=== PATIENT | female | born 1990 | race Caucasian/White ===

== ENCOUNTER → 2017-10-30 | Outpatient (CLI) | payer MEDICAID ==
--- NOTE | 2017-10-30 16:01 | RADIOLOGY REPORT (SQ) ---
EXAM DESCRIPTION: U/S NON-OB PELVIS TV W/O DOP COMPLETED DATE/TIME: 10/30/2017 2:46 pm REASON FOR STUDY: PELVIC PAIN IN FEMALE (R10.2) R10.2 PELVIC AND PERINEAL PAIN COMPARISON: None. TECHNIQUE: Dynamic and static grayscale images acquired of the pelvis via transvaginal approach and recorded on PACS. Additional selected color Doppler and spectral images recorded. LIMITATIONS: Left ovary not visualized due to adnexal bowel gas FINDINGS: UTERUS: Contour normal. No mass. Uterus measures 8 x 5 x 4 cm in size. ENDOMETRIAL STRIPE: 5 mm in thickness. Small amount of fluid in the fundal endometrium. CERVIX: No nabothian cysts. Closed, 3.5 cm in length. RIGHT OVARY: No abnormal masses. Right ovary 2.3 x 2.7 x 2 cm in size RIGHT OVARY DOPPLER: Normal arterial vascular flow without evidence for torsion. LEFT OVARY: Not visualized LEFT OVARY DOPPLER: Not performed FREE FLUID: None noted. OTHER: No other significant finding. IMPRESSION: LEFT OVARY NOT VISUALIZED. OTHERWISE UNREMARKABLE TRANSVAGINAL PELVIC ULTRASOUND. TECHNICAL DOCUMENTATION: JOB ID: [id number] [employer]- All Rights Reserved
== END ==
LOC: RAD 14:03
PROVIDERS: ATTEND Nurse Practitioner Family
DX: R10.2 Pelvic and perineal pain (principal)
CPT/HCPCS: 76830

== ENCOUNTER 2018-09-20 04:04 | Emergency (ER) | payer MEDICAID ==
--- NOTE | 2018-09-20 05:18 | ER Document Report ---
ED General - General Chief Complaint: Urinary Problem Stated Complaint: ABDOMINAL PAIN,LOWER BACK PAIN Time Seen by Provider: 09/20/18 04:35 Notes: 27-year-old female with no past medical history who presents to the emergency department with abdominal pain and lower back pain that is worse on the right side and radiates around to her right lower quadrant to the suprapubic area. She was seen at [facility] last night and was diagnosed with a UTI was given 1 dose of oral antibiotics and discharged with a prescription. She has not gotten it filled yet and only has 1 dose on board. Her discharge instructions were if the pain got worse or she had any concerns to return to the emergency department and [facility] was the closest one for her so she came here. She endorses right flank paiN, right lower quadrant pain, urinary frequency, and states that she vomited 2 times yesterday. She denies fevers, chills, diaphoresis, dysuria, abnormal vaginal discharge, any other symptoms. LMP 09/12/2018. Patient is and in a monogamous relationship. TRAVEL OUTSIDE OF THE [place] IN LAST 30 DAYS: No - HPI Patient complains to provider of: UTI, back pain - Related Data Allergies/Adverse Reactions: No Known Allergies Allergy (Verified 08/05/15 12:31) Past Medical History - General Information source: Patient - Social History Smoking Status: Never Smoker Family History: Reviewed & Not Pertinent Patient has suicidal ideation: No Patient has homicidal ideation: No Pulmonary Medical History: Reports: Hx Asthma - NOT ON MEDS IN YEARS Neurological Medical History: Denies: Hx Seizures Endocrine Medical History: Denies: Hx Hyperthyroidism, Hx Hypothyroidism Renal/ Medical History: Denies: Hx Peritoneal Dialysis Psychiatric Medical History: Reports: Hx Anxiety Infectious Medical History: Denies: Hx HIV Past Surgical History: Reports: Hx Adenoidectomy, Hx Section - x3, Hx Tonsillectomy. Denies: Hx Hysterectomy, Hx Pacemaker - Immunizations Immunizations up to date: Yes Hx Diphtheria, Pertussis, Tetanus Vaccination: Yes Review of Systems - Review of Systems Constitutional: See HPI EENT: See HPI Cardiovascular: No symptoms reported Respiratory: See HPI Gastrointestinal: See HPI Genitourinary: See HPI Female Genitourinary: See HPI Musculoskeletal: See HPI Skin: No symptoms reported Hematologic/Lymphatic: No symptoms reported Neurological/Psychological: No symptoms reported Physical Exam - Vital signs Vitals: Temp Pulse Resp BP Pulse Ox 98.1 F 90 16 110/59 L 98 09/20/18 04:05 09/20/18 04:05 09/20/18 04:05 09/20/18 04:05 09/20/18 04:05 Interpretation: Normal - Notes Notes: Reviewed vital signs and nursing note as charted by RN. CONSTITUTIONAL: Well-appearing, well-nourished, acting appropriately for age HEAD: Normocephalic, atraumatic, no swelling EYES: PERRL, Conjunctivae clear, no drainage, EOMI, no scleral icterus ENT: External ears without lesions, External auditory canal is patent, airway patent, mucous membranes pink and moist NECK: Supple, no masses CARD: Regular rate and rhythm, no murmurs, no rubs, no gallops, capillary refill < 2 seconds, symmetric pulses RESP: The lungs are clear to auscultation bilaterally, no wheezing, no rales, no rhonchi. Respiratory rate and effort are normal, normal chest excursion. No respiratory distress, no retractions, no stridor, no nasal flaring, no accessory muscle use. ABD/GI: Normal bowel sounds, non-distended, soft, tenderness to palpation right lower quadrant and suprapubic area, no rebound, no guarding, no palpable organomegaly : CVA tenderness right side EXT: Normal ROM in all joints, non-tender to palpation, no effusions, no edema SKIN: Normal color for age and race, warm, dry, good turgor, no acute lesions noted NEURO: No facial asymmetry, moves all extremities equally, motor and sensory function intact Course - Re-evaluation Re-evalutation: 27-year-old female who presents to the emergency department after being seen at [facility] a few hours ago and diagnosed with a UTI. She recently received 1 dose of antibiotic there and prescribed Keflex. Discharge instructions stated that if her pain worsened or if she had a concern to return to the emergency department. [facility] the closest ER so she came here because her flank pain worsened and she could not sleep. Discussed with the patient that it could take 24-48 hours for antibiotics to start working, although she was diagnosed with a UTI it is concerning that she is having flank pain. Shared decision-making with the patient included 1: Discharge with very close follow-up over the next 24-48 hours to see if the antibiotic start working; or 2: Initiate a workup to include urinalysis/hCG, blood work, and a KUB. Patient opted for basic workup. 09/20/18 06:00 Patient possibly with an early developing pyelonephritis. Instructed her to immediately fill the prescription for Keflex that she received at [facility] last night and to start treatment. Strict return precautions provided. - Vital Signs Vital signs: Temp Pulse Resp BP Pulse Ox 98.1 F 90 16 110/59 L 98 09/20/18 04:05 09/20/18 04:05 09/20/18 04:05 09/20/18 04:05 09/20/18 04:05 - Laboratory Result Diagrams: 09/20/18 05:20 09/20/18 05:20 Laboratory results interpreted by me: 09/20/18 09/20/18 05:20 05:20 RDW 14.2 H Urine Blood SMALL H Ur Leukocyte Esterase TRACE H Discharge - Discharge Clinical Impression: Flank pain UTI (urinary tract infection) Qualifiers: Urinary tract infection type: acute cystitis Hematuria presence: without hematuria Qualified Code(s): N30.00 - Acute cystitis without hematuria Disposition: HOME, SELF-CARE Instructions: Urinary Tract Infection ([facility]) Additional Instructions: You were seen in the emergency department this morning for a urinary tract infection. Please fill the prescription you received from [facility] and complete the course of antibiotics. All of your lab work was normal and there is no sign of infection other than in your urine. You should start feeling better in the next 24-48 hours after you get antibiotics in your system. You were also prescribed a muscle relaxer that you can take before you go to bed at night to help you sleep and it will hopefully improve your back pain. It is not advisable to take this medication and drive or work. If over the next couple of days you develop a high fever, have severe flank or abdominal pain, pass out, or the course of your illness gets worse please return to the emergency department. Prescriptions: Methocarbamol [Robaxin] 500 mg PO BID PRN #14 tablet PRN Reason: Forms: Return to Work Referrals: SHANDRA ARRIAZA HORSE STUD MANAGER [Primary Care Provider] - Follow up as needed
[2018-09-20] MEDS ORDERED: OXYCODONE-ACETAMINOPHEN 5-325 MG TABLET PO ONE (05:29)
[2018-09-20 05:35] LABS: ABSOLUTE EOSINOPHILS # (AUTO) 0.2 10^3/uL (0.0-0.6); ABSOLUTE LYMPHOCYTES (AUTO) 3.1 10^3/uL (0.5-4.7); ABSOLUTE MONOCYTES (AUTO) 0.4 10^3/uL (0.1-1.4); ABSOLUTE NEUT (AUTO) 3.4 10^3/uL (1.7-8.2); BASOPHILS % (AUTO) 0.6 % (0-2); EOSINOPHILS % (AUTO) 3.3 % (0-6); HEMATOCRIT 41.7 % (36.0-47.0); HEMOGLOBIN 14.1 g/dL (12.0-15.5); LYMPHOCYTES % (AUTO) 42.9 % (13-45); MEAN CORPUSCULAR HEMOGLOBIN 31.1 pg (27.0-33.4); MEAN CORPUSCULAR HGB CONC 33.8 g/dL (32.0-36.0); MEAN CORPUSCULAR VOLUME 92 fl (80-97); MONOCYTES % (AUTO) 5.9 % (3-13); PLATELET COUNT 255 10^3/uL (150-450); RED BLOOD COUNT 4.53 10^6/uL (3.72-5.28); RED CELL DISTRIBUTION WIDTH 14.2 % (11.5-14.0); SEGMENTED NEUTROPHILS % (AUTO) 47.3 % (42-78); TOTAL CELLS COUNTED % (AUTO) 100 %; WHITE BLOOD COUNT 7.2 10^3/uL (4.0-10.5)
[2018-09-20 05:56] LABS: ALANINE AMINOTRANSFERASE 15 U/L (9-52); ALBUMIN 4.6 g/dL (3.5-5.0); ALKALINE PHOSPHATASE 62 U/L (38-126); ANION GAP 8 (5-19); ASPARTATE AMINO TRANSFERASE 19 U/L (14-36); BILIRUBIN,DIRECT 0.3 mg/dL (0.0-0.4); BILIRUBIN,TOTAL 0.3 mg/dL (0.2-1.3); BLOOD UREA NITROGEN 12 mg/dL (7-20); CALCIUM 9.8 mg/dL (8.4-10.2); CARBON DIOXIDE 29 mmol/L (22-30); CHLORIDE 105 mmol/L (98-107); GLUCOSE 94 mg/dL (75-110); POTASSIUM 3.9 mmol/L (3.6-5.0); SODIUM 141.6 mmol/L (137-145); TOTAL PROTEIN 7.5 g/dL (6.3-8.2)
[2018-09-20 06:16] LABS: APPEARANCE,URINE CLEAR; BILIRUBIN,URINE NEGATIVE (NEGATIVE); COLOR,URINE YELLOW; GLUCOSE, URINE NEGATIVE (NEGATIVE); KETONES,URINE NEGATIVE (NEGATIVE); LEUKOCYTE ESTERASE,URINE TRACE (NEGATIVE); NITRITE,URINE NEGATIVE (NEGATIVE); PROTEIN,URINE NEGATIVE (NEGATIVE); URINE SPECIFIC GRAVITY 1.011; UROBILINOGEN,URINE NEGATIVE mg/dL (<2.0)
--- NOTE | 2018-09-20 06:36 | RADIOLOGY REPORT (SQ) ---
EXAM DESCRIPTION: XR ABDOMEN 1 VIEW (KUB) COMPLETED DATE/TME: 09/20/2018 05:06 CLINICAL HISTORY: 27 years, Female, R CVA tenderness COMPARISON: None. NUMBER OF VIEWS: 1 TECHNIQUE: AP abdomen LIMITATIONS: None. FINDINGS: Nonspecific bowel gas pattern. Evaluation for free air limited on a supine view. Large amount of stool in the colon. IMPRESSION: Large amount of stool in the colon copyright 2010 [employer]- All Rights Reserved
[2018-09-20 06:54] VITALS: BP 111/64
== END 2018-09-20 06:54 | disposition home or self-care (01) ==
LOC: ER 04:04
DX: N30.00 Acute cystitis without hematuria (principal); R10.9 Unspecified abdominal pain; M54.5 Low back pain; R39.198 Other difficulties with micturition; R10.31 Right lower quadrant pain; R35.0 Frequency of micturition; J45.909 Unspecified asthma, uncomplicated
CPT/HCPCS: 36415; 74018; 80053; 81001; 81025; 85025; 87086; 99284

== ENCOUNTER 2020-01-07 11:04 | Emergency (ER) | payer SELFPAY ==
[2020-01-07 11:26] LABS: ABSOLUTE BASOPHILS # (AUTO) 0.1 10^3/uL (0.0-0.2); ABSOLUTE EOSINOPHILS # (AUTO) 0.1 10^3/uL (0.0-0.6); ABSOLUTE LYMPHOCYTES (AUTO) 1.9 10^3/uL (0.5-4.7); ABSOLUTE MONOCYTES (AUTO) 0.4 10^3/uL (0.1-1.4); ABSOLUTE NEUT (AUTO) 3.5 10^3/uL (1.7-8.2); EOSINOPHILS % (AUTO) 1.2 % (0-6); HEMATOCRIT 37.4 % (36.0-47.0); HEMOGLOBIN 12.3 g/dL (12.0-15.5); LYMPHOCYTES % (AUTO) 32.1 % (13-45); MEAN CORPUSCULAR HGB CONC 32.8 g/dL (32.0-36.0); MEAN CORPUSCULAR VOLUME 82 fl (80-97); MONOCYTES % (AUTO) 6.4 % (3-13); PLATELET COUNT 288 10^3/uL (150-450); RED BLOOD COUNT 4.54 10^6/uL (3.72-5.28); RED CELL DISTRIBUTION WIDTH 18.2 % (11.5-14.0); SEGMENTED NEUTROPHILS % (AUTO) 59.3 % (42-78); TOTAL CELLS COUNTED % (AUTO) 100 %; WHITE BLOOD COUNT 5.9 10^3/uL (4.0-10.5)
[2020-01-07] MEDS ORDERED: METOCLOPRAMIDE HCL INJ/PF 10 MG/2 ML SDV IV ONE (11:27)
[2020-01-07] MEDS ORDERED: NORMAL SALINE 1000 ML 1,000 ML IV ONE (11:27)
[2020-01-07] MEDS ORDERED: DIPHENHYDRAMINE HCL 50 MG/ML VIAL IV ONE (11:28)
[2020-01-07] MEDS ORDERED: FENTANYL CITRATE INJ/PF 100 MCG/2 ML AMPUL IV ONE (11:28)
--- NOTE | 2020-01-07 11:39 | ER Document Report ---
Entered by KRISTY FRAGOSO SCRIBE 01/07/20 1115 Acting as scribe for:JONATHAN HILL DO ED General - General Chief Complaint: Probable Seizure Stated Complaint: POSSIBLE SEIZURE Time Seen by Provider: 01/07/20 11:10 Primary Care Provider: SHANDRA ARRIAZA NP [NURSE PRACTITIONER] - Follow up as needed Information source: Patient Notes: This 29-year-old right-handed female with a history of headaches presents to the emergency department complaining of a headache since this morning. Patient describes the location of the headache as biparietal and as throbbing. Patient explains that she went to [place] with her today and had an episode of nausea with vomiting just before they arrival to [place]. Patient said that when they got to [place], she felt "shaky" and "may have pass out" or "had a seizure". Patient said that when she has headaches she "has episodes like this" and has had headache since she was [age] years old. Patient reports right hip pain, clive tosensitivity, persistent nausea, and persistent vomiting. Patient denies fever, tick bites. biting her tongue or incontinence. TRAVEL OUTSIDE OF THE [place] IN LAST 30 DAYS: No - Related Data Allergies/Adverse Reactions: No Known Allergies Allergy (Verified 08/05/15 12:31) Past Medical History - General Information source: Patient - Social History Smoking Status: Never Smoker Cigarette use (# per day): No Chew tobacco use (# tins/day): No Family History: Reviewed & Not Pertinent Pulmonary Medical History: Reports: Hx Asthma - NOT ON MEDS IN YEARS Psychiatric Medical History: Reports: Hx Anxiety Past Surgical History: Reports: Hx Adenoidectomy, Hx Section - x3, Hx Tonsillectomy - Immunizations Immunizations up to date: Yes Hx Diphtheria, Pertussis, Tetanus Vaccination: Yes Review of Systems - Review of Systems Constitutional: See HPI. denies: Fever EENT: See HPI, Other - Photosensitivity Cardiovascular: No symptoms reported Respiratory: No symptoms reported Gastrointestinal: See HPI, Nausea, Vomiting Genitourinary: See HPI. denies: Incontinence Female Genitourinary: No symptoms reported Musculoskeletal: See HPI, Other - Right hip pain Skin: No symptoms reported Hematologic/Lymphatic: No symptoms reported Neurological/Psychological: See HPI, Headaches -: Yes All other systems reviewed and negative Physical Exam - Vital signs Vitals: Resp Pulse Ox 13 99 01/07/20 11:13 01/07/20 11:13 - Notes Notes: Physical Exam: General: Alert, appears well. HEENT: Normocephalic. Atraumatic. PERRL. Extraocular movements intact. Oropharynx clear. Parietal region tenderness to palpation bilaterally. Neck: Supple. Non-tender. Respiratory: No respiratory distress. Clear and equal breath sounds bilaterally. Cardiovascular: Regular rate and rhythm. Abdominal: Normal Inspection. Non-tender. No distension. Normal Bowel Sounds. Back: No gross abnormalities. Extremities: Moves all four extremities. Upper extremities: Normal inspection. Normal ROM. Lower extremities: Normal inspection. No edema. Normal ROM. Neurological: Normal cognition. AAOx4. Normal speech. Psychological: Normal affect. Normal Mood. Skin: Warm. Dry. Normal color. Course - Vital Signs Vital signs: Temp Pulse Resp BP Pulse Ox 98.6 F 17 102/70 99 01/07/20 13:30 01/07/20 13:27 01/07/20 13:27 01/07/20 13:27 - Laboratory Result Diagrams: 01/07/20 11:13 01/07/20 11:13 Laboratory results interpreted by me: 01/07/20 01/07/20 01/07/20 11:13 11:13 12:05 RDW 18.2 H Magnesium 2.4 H Total Protein 8.3 H Ur Leukocyte Esterase TRACE H - EKG Interpretation by Mi EKG shows normal: Sinus rhythm Rate: Tachycardia Rhythm: NSR - Sinus Tachy 107 BPM otherwise normal. No st elevation or depression my interpretation. Discharge - Discharge Clinical Impression: Headache Qualifiers: Headache type: unspecified Headache chronicity pattern: acute headache Intractability: not intractable Qualified Code(s): R51 - Headache Syncope Qualifiers: Encounter type: initial encounter Condition: Good Disposition: HOME, SELF-CARE Instructions: Headache ([facility]), Migraine Headache ([facility]), Tension Headache ([facility]), Syncopal Episode ([facility]) Additional Instructions: See your doctor in follow up. Rest. Take your medicine as directed. Please return here for any problems or concerns including but not limited to fever, inability to tolerate the medicine or passing out recurrently. Referrals: SHANDRA ARRIAZA BEE RAISER [NURSE PRACTITIONER] - Follow up as needed I personally performed the services described in the documentation, reviewed and edited the documentation which was dictated to the scribe in my presence, and it accurately records my words and actions.
[2020-01-07 11:47] LABS: ALKALINE PHOSPHATASE 54 U/L (38-126); ANION GAP 10 (5-19); ASPARTATE AMINO TRANSFERASE 20 U/L (14-36); BILIRUBIN,TOTAL 0.3 mg/dL (0.2-1.3); BLOOD UREA NITROGEN 16 mg/dL (7-20); CALCIUM 9.8 mg/dL (8.4-10.2); CARBON DIOXIDE 26 mmol/L (22-30); CHLORIDE 104 mmol/L (98-107); GLUCOSE 86 mg/dL (75-110); POTASSIUM 4.4 mmol/L (3.6-5.0); TOTAL PROTEIN 8.3 g/dL (6.3-8.2)
[2020-01-07 11:55] LABS: ALCOHOL < 10 mg/dL (NONE DETECTED)
--- NOTE | 2020-01-07 11:59 | RADIOLOGY REPORT (SQ) ---
EXAM DESCRIPTION: CT HEAD WITHOUT IMAGES COMPLETED DATE/TIME: 01/07/2020 11:48 am REASON FOR STUDY: headache COMPARISON: None. TECHNIQUE: Axial images acquired through the brain without intravenous contrast. Images reviewed wi th bone, brain and subdural windows. Additional sagittal and coronal reconstructions were generated. Images stored on PACS. All CT scanners at this facility use dose modulation, iterative reconstruction, and/or weight based d osing when appropriate to reduce radiation dose to as low as reasonably achievable (ALARA). [facility]: Dose Right [facility]: CareDose [facility]: Dose Right [facility]: Teradose 4D [facility]: Qloo RADIATION DOSE: CT Rad equipment meets quality standard of care and radiation dose reduction techniq ues were employed. CTDIvol: 53.2 mGy. DLP: 1070 mGy-cm. mGy. LIMITATIONS: None. FINDINGS: VENTRICLES: Normal size and contour. CEREBRUM: No masses. No hemorrhage. No midline shift. No evidence for acute infarction. Normal gra y/white matter differentiation. No areas of low density in the white matter. CEREBELLUM: No masses. No hemorrhage. No alteration of density. No evidence for acute infarction. EXTRAAXIAL SPACES: No fluid collections. No masses. ORBITS AND GLOBE: No intra- or extraconal masses. Normal contour of globe without masses. CALVARIUM: No fracture. PARANASAL SINUSES: No fluid or mucosal thickening. SOFT TISSUES: No mass or hematoma. OTHER: No other significant finding. IMPRESSION: NORMAL BRAIN CT WITHOUT CONTRAST. EVIDENCE OF ACUTE STROKE: NO. COMMENT: Quality ID # [id number]: Final reports with documentation of one or more dose reduction techniques (e.g., Automated exposure control, adjustment of the mA and/or kV according to patient size, use of iterative reconstruction technique) TECHNICAL DOCUMENTATION: JOB ID: [id number] 2010 [employer]- All Rights Reserved Reading location - IP/workstation name: [email or web address]
--- NOTE | 2020-01-07 12:24 | EKG REPORT ---
SEVERITY:- OTHERWISE NORMAL ECG - SINUS TACHYCARDIA : Confirmed by: Chao Quiroga MD 07-Jan-2020 12:23:08
[2020-01-07 12:34] LABS: URINE AMPHETAMINES SCREEN NEGATIVE; URINE BARBITURATES SCREEN NEGATIVE; URINE BENZODIAZEPINES SCREEN NEGATIVE; URINE COCAINE SCREEN NEGATIVE; URINE METHADONE SCREEN NEGATIVE; URINE PHENCYCLIDINE SCREEN NEGATIVE
[2020-01-07 12:43] LABS: URINE MARIJUANA (THC) SCREEN UNCONFIRMED POSITIVE
[2020-01-07 12:48] LABS: APPEARANCE,URINE CLEAR; BILIRUBIN,URINE NEGATIVE (NEGATIVE); COLOR,URINE YELLOW; GLUCOSE, URINE NEGATIVE (NEGATIVE); KETONES,URINE NEGATIVE (NEGATIVE); LEUKOCYTE ESTERASE,URINE TRACE (NEGATIVE); NITRITE,URINE NEGATIVE (NEGATIVE); PROTEIN,URINE NEGATIVE (NEGATIVE); URINE SPECIFIC GRAVITY 1.016; UROBILINOGEN,URINE NEGATIVE mg/dL (<2.0)
[2020-01-07 13:30] VITALS: BP 102/70
== END 2020-01-07 13:52 | disposition home or self-care (01) ==
LOC: ER 11:04
DX: R51 Headache (principal); R55 Syncope and collapse; R00.0 Tachycardia, unspecified; R11.2 Nausea with vomiting, unspecified; M25.551 Pain in right hip; H53.149 Visual discomfort, unspecified; J45.909 Unspecified asthma, uncomplicated
CPT/HCPCS: 93005; 99284; 96361; 96374; 96375; 36415; 80307 ×2; 83605; 83735; 84443; 84703; 85025; 80053; 81001; 70450; 93010; J1200; J3010; J2765; J7030

== ENCOUNTER 2020-10-13 10:19 | Emergency (ER) | payer MEDICAID ==
--- NOTE | 2020-10-13 11:20 | ER Document Report ---
Entered by LITA PERALTA SCRIBE 10/13/20 1055 Acting as scribe for:CARMEN LOPEZ MD ED ENT - General Chief Complaint: Sore Throat Stated Complaint: SORE THROAT Time Seen by Provider: 10/13/20 10:45 Primary Care Provider: NOEL CRYSTAL [Provider Group] - Follow up as needed LOCALMD,KAREN [Primary Care Provider] - Follow up as needed Mode of Arrival: Ambulatory Information source: Patient Notes: This 29-year-old female patient presents to the emergency department today with complaints of throat pain for the last x4-5 days. Patient now complains of blisters in her mouth and on the corner of her lips as well. Her last menstrual period was in April, she is 23 weeks . TRAVEL OUTSIDE OF THE [place] IN LAST 30 DAYS: No - Related Data Allergies/Adverse Reactions: No Known Allergies Allergy (Verified 10/13/20 10:46) Past Medical History - General Information source: Patient - Social History Smoking Status: Never Smoker Cigarette use (# per day): No Frequency of alcohol use: None Drug Abuse: None Lives with: Family Family History: Reviewed & Not Pertinent Pulmonary Medical History: Reports: Hx Asthma - NOT ON MEDS IN YEARS Psychiatric Medical History: Reports: Hx Anxiety Past Surgical History: Reports: Hx Adenoidectomy, Hx Section - x3, Hx Tonsillectomy - Immunizations Immunizations up to date: Yes Hx Diphtheria, Pertussis, Tetanus Vaccination: Yes Review of Systems - Review of Systems Constitutional: No symptoms reported EENT: See HPI, Throat pain, Mouth pain, Mouth swelling Cardiovascular: No symptoms reported Respiratory: No symptoms reported Gastrointestinal: No symptoms reported Genitourinary: No symptoms reported Female Genitourinary: See HPI, Musculoskeletal: No symptoms reported Skin: No symptoms reported Hematologic/Lymphatic: No symptoms reported Neurological/Psychological: No symptoms reported -: Yes All other systems reviewed and negative Physical Exam - Vital signs Vitals: Temp Pulse Resp BP Pulse Ox 99.3 F 105 H 19 95/52 L 100 10/13/20 10:40 10/13/20 10:40 10/13/20 10:40 10/13/20 10:40 10/13/20 10:40 - Notes Notes: Physical Exam: General: Alert, appears uncomfortable. HEENT: Normocephalic. Atraumatic. PERRL. Extraocular movements intact. Orop harynx clear. There is an ulcer under the tongue, right posterior throat, and corners of the mouth bilaterally. Right submandibular swelling and tenderness to palpation. Neck: Supple. Non-tender. Respiratory: No respiratory distress. Clear and equal breath sounds bilaterally. Cardiovascular: Regular rate and rhythm. Abdominal: Normal Inspection. Non-tender. No distension. Normal Bowel Sounds. Back: No gross abnormalities. Extremities: Moves all four extremities. Upper extremities: Normal inspection. Normal ROM. Lower extremities: Normal inspection. No edema. Normal ROM. Neurological: Normal cognition. AAOx4. Normal speech. Psychological: Normal affect. Normal Mood. Skin: Warm. Dry. Normal color. Course - Re-evaluation Re-evalutation: 10/13/20 13:03 The patient was evaluated during the global COVID-19 pandemic and that diagnosis was suspected/considered upon their initial presentation. Their evaluation, treatment and testing was consistent with current guidelines for patients who present with complaints or symptoms that may be related to COVID-19. - Vital Signs Vital signs: Temp Pulse Resp BP Pulse Ox 98.4 F 96 16 106/64 100 10/13/20 12:40 10/13/20 12:40 10/13/20 12:40 10/13/20 12:40 10/13/20 12:40 - Laboratory Results Critical Laboratory Results Reviewed: No Critical Results - Radiology Results Critical Radiology Results Reviewed: No Critical Results Discharge - Discharge Clinical Impression: Coxsackievirus infection Condition: Stable Disposition: HOME, SELF-CARE Additional Instructions: Coxsackie Virus The coxsackie virus most often infects children. It grows in the intestines. Most patients have no symptoms at all. Some have fever and muscle aches, and may develop sore throat, nausea, and stomach aches. The fever of coxsackie virus is unusual, because it often comes on for one day, goes away for two days, then comes back for two to four days. In some patients, the coxsackie virus causes other symptoms. Newborns have an increased risk of severe infection. Fortunately, dangerous complications are very rare. 1. Herpangina -- painful ulcers on the throat, uvula, and palate. This usually lasts about a week. 2. Hand, Foot, and Mouth Disease -- tiny blisters in the mouth and throat, plus blisters on the palms and soles of the feet. 3. Pleurodynia -- pain in the chest and upper abdomen. This usually is gone in a couple of days. 4. Orchitis -- pain of the testicle, usually about two weeks after an attack of pleurodynia. 5. Conjunctivitis -- viral infection in the eye, often with small hemorrhages over the globe of the eye. Usually lasts about a week. 6. Rash -- usually bright red bumps about 1/8 inch in size, develops as the fever goes away. 7. Meningitis or encephalitis -- infection in the spinal fluid or brain (rare). 8. Myocarditis -- infection in the heart muscle (rare). There is no cure for coxsackie virus. Give acetaminophen for fever and aches. Have the child rest. If there are mouth sores, you'll need to pay attention to whether your child is getting enough fluids. The coxsackie virus is very contagious. Children should stay out of school for five days. Use good handwashing. Shared toys should be cleaned with disinfectant. Clean the toilets, sinks, and counter surfaces in bathrooms. Launder clothing in hot water. Call the doctor or return if there is lethargy, increasing headache, a seizure, neck stiffness, chest pain, severe abdominal pain, vomiting, shortness of breath, testicle pain, or if fever persists for more than a few days. use the Magic mouthwash to help relieve discomfort in your mouth. Do not eat or drink for 30 minutes after swishing and gargling the mouthwash. Take the pain medication as prescribed if needed. Be sure you drink plenty of fluids throughout the day in the evening. [facility] for recheck. RETURN TO THE EMERGENCY ROOM IF ANY NEW OR WORSENING SYMPTOMS. Prescriptions: Nystatin/Dexameth/Diphen [Magic Mouthwash ([facility] Formula) Susp] 5 ml PO ASDIR PRN #120 ml PRN Reason: Hydrocodone/Acetaminophen [[place] 5-325 mg Tablet] 1 tab PO ASDIR PRN #15 tablet PRN Reason: For Pain Referrals: LOCALMD,NO [Primary Care Provider] - Follow up as needed [facility] [Provider Group] - Follow up as needed I personally performed the services described in the documentation, reviewed and edited the documentation which was dictated to the scribe in my presence, and it accurately records my words and actions.
[2020-10-13 13:01] VITALS: BP 106/64
== END 2020-10-13 12:40 | disposition home or self-care (01) ==
LOC: ER 10:19
DX: O26.92 Pregnancy related conditions, unspecified, second trimester (principal); B34.1 Enterovirus infection, unspecified; J02.9 Acute pharyngitis, unspecified; Z3A.23 23 weeks gestation of pregnancy
CPT/HCPCS: 99284

== ENCOUNTER 2020-10-16 12:43 | Emergency (ER) | payer MEDICAID ==
[2020-10-16 12:53] VITALS: BP 105/68
--- NOTE | 2020-10-16 13:07 | ER Document Report ---
HPI - HPI Patient complains to provider of: Mouth sores Time Seen by Provider: 10/16/20 12:51 Pain Level: 3 Context: 29-year-old female 5 para 4, 23 weeks presents to the emergency room complaining of worsening mouth sores and swollen glands. Patient states started with swollen glands 10 days ago. 3 days later started with blisters on the edges of her lips and mouth. States was seen here 3 days ago was with diagnosed with coxsackievirus was described Vicodin and Magic mouthwash which she states she is currently out of both but both medications did help. She has had no coxsackie virus exposure. Blisters are limited to her mouth and lips. No history of oral herpes. States her glands are still swollen but she is able to tolerate p.o. food and fluid without difficulty. OB care up-to-date. No OB related complaints. Has not taken any medications today for her pain. Associated Symptoms: None Exacerbated by: Other - Swallowing Relieved by: Denies Similar symptoms previously: No Recently seen / treated by doctor: Yes - seen in ed 10/13/2019 - ROS Systems Reviewed and Negative: Yes All other systems reviewed and negative - CONSTITUTIONAL Constitutional: DENIES: Fever - EENT EENT: REPORTS: Sore Throat. DENIES: Ear Pain, Eye problems - REPRODUCTIVE Reproductive: REPORTS: : - DERM Skin Color: Erythema Skin Problems: Blister Past Medical History - General Information source: Patient - Social History Smoking Status: Former Smoker Frequency of alcohol use: None Drug Abuse: None Family History: Reviewed & Not Pertinent Pulmonary Medical History: Reports: Hx Asthma Neurological Medical History: Reports: Hx Migraine. Denies: Hx Seizures Endocrine Medical History: Denies: Hx Hyperthyroidism, Hx Hypothyroidism Renal/ Medical History: Denies: Hx Peritoneal Dialysis Psychiatric Medical History: Reports: Hx Anxiety Infectious Medical History: Denies: Hx HIV Past Surgical History: Reports: Hx Adenoidectomy, Hx Section, Hx Tonsillectomy. Denies: Hx Hysterectomy, Hx Pacemaker - Immunizations Immunizations up to date: Yes Hx Diphtheria, Pertussis, Tetanus Vaccination: Yes Vertical Provider Document - CONSTITUTIONAL Agree With Documented VS: Yes Exam Limitations: No Limitations General Appearance: Mild Distress - INFECTION CONTROL TRAVEL OUTSIDE OF THE [place] IN LAST 30 DAYS: No - HEENT HEENT: Normocephalic. negative: Pharyngeal Tenderness, Pharyngeal Erythema, Tympanic Membrane Red, Tympanic Membrane Bulging Notes: Cold sores noted to the bilateral outer areas of the lips. There are a few scattered lesions to the posterior pharynx. There is no erythema, there is no exudate. No obvious peritonsillar abscess. Handling her secretions, talking in full sentences. - NECK Neck: Lymphadenopathy-Left, Lymphadenopathy-Right Notes: Positive bilateral anterior cervical lymphadenopathy. - RESPIRATORY Respiratory: Breath Sounds Normal, No Respiratory Distress - CARDIOVASCULAR Cardiovascular: No Murmur, Tachycardia - BACK Back: Normal Inspection - MUSCULOSKELETAL/EXTREMETIES Musculoskeletal/Extremeties: FROM - NEURO Level of Consciousness: Awake, Alert, Appropriate Motor/Sensory: No Motor Deficit, No Sensory Deficit - DERM Integumentary: Warm, Dry, No Rash Course - Re-evaluation Re-evalutation: 10/16/20 12:59 Reviewed diagnosis with patient. Counseled take Valtrex as prescribed. Continue with Magic mouthwash. Can take Tylenol as needed for pain not to exceed 8 regular strength Tylenol in 24 hours. Follow-up with her FISH PITCHER or primary care physician if not improving in 2 days. Tylenol as needed for pain. Patient was given strict return to the emergency room guidelines. Return for any new or worsening symptoms. All questions were answered. Patient verbalized understanding and agrees with plan of care. 10/16/20 13:18 - Vital Signs Vital signs: Temp Pulse Resp BP Pulse Ox 98.2 F 110 H 20 105/68 100 10/16/20 12:48 10/16/20 12:48 10/16/20 12:48 10/16/20 12:48 10/16/20 12:48 - Laboratory Results Critical Laboratory Results Reviewed: No Critical Results - Radiology Results Critical Radiology Results Reviewed: No Critical Results Discharge - Discharge Clinical Impression: Gingivostomatitis, Oral herpes simplex infection Condition: Stable Disposition: HOME, SELF-CARE Instructions: Herpes Simplex ([facility]) Additional Instructions: Take the Valtrex as prescribed. Continue use of Magic mouthwash. Follow-up with your FISH PITCHER or primary care physician if not improving in 2 to 3 days. Return to the emergency room for any new or worsening symptoms. Prescriptions: Nystatin/Dexameth/Diphen [Magic Mouthwash ([facility] Formula) Susp] 5 ml PO QID #120 ml Valacyclovir HCl [Valtrex 500 Mg Tablet] 1,000 mg PO Q12H 7 Days #28 tablet Referrals: LOCALMD,NO [Primary Care Provider] - Follow up as needed
--- OUTSIDE RECORDS SUMMARY | 2020-10-18 10:42 | XMS REPORT ---
:1990 Author Organization [facility] Address [facility] [place] [address] [place] [id number] Care Team Providers Name Role Phone UNASSIGN, DOCTOR Primary Care Physician Unavailable Yasmeen WHITE Attending Clinician Unavailable EMERGENCY Attending Clinician Unavailable Mahamed Attending Clinician Unavailable EMERGENCY Admitting Clinician Unavailable Allergies, Adverse Reactions, Alerts This patient has no known allergies or adverse reactions. Medications Ordered Filled Start Stop Current Ordering Indication Dosage Frequency Signature Comments Components Medication Medication Date Date Medication? Clinician (SIG) Name Name metroNIDAZO 2017-09- No 500mg Q.5D Take 1 Tab LE (FLAGYL) 09-28 by mouth 500 mg Oral 00:00: 23:59 twice a Tablet 00 :00 day for 7 days. traMADol 2017-09- No 50mg Q6H Take 1 Tab (ULTRAM) 50 09-24 by mouth mg Oral 00:00: 23:59 every 6 Tablet 00 :00 hours as needed for Pain for up to 3 days. EROP 2017-09- No 50mg Q6H 50 mg, tramadol 09-21 Oral, (ULTRAM) 50 02:42: 02:41 EVERY 6 mg per 02 :02 HOURS tablet 50 NEEDED, mg Pain, Starting 09/20/18 at 0242, For 1 day
DO NOT ADMINISTER . &nb sp;This medication is to be dispensed to the patient at discharge from the ED. & nbsp;The medication should be used as directed by the physician.
cephALEXin 2017-09- No 8 500mg 500 mg, (KEFLEX) 09-20 Oral, ED capsule 500 02:25: 02:37 ONCE, Sat mg 00 :00 09/20/18 at 0225, For 1 dose
In dications: urinary tract infection cephALEXin 2017-09- No 500mg Q.96321059 Take 1 Ca p (KEFLEX) 209-27 [id number] by mouth 500 mg Oral 00:00: 23:59 3D every 8 Capsule 00 :00 hours for 7 days. ondansetron 2017-09- No 4mg 4 mg, ODT -07 03- Oral, ED (ZOFRAN-ODT 21:55: 21:58 ONCE, Sat ) 00 :00 08/02/18 dispersible at 2155, tablet 4 mg For 1 dose
Or ally disintegra ting.&nbsp ; &nb sp; < br> HYDROcodone 2017-09- No 1{tbl} 1 Tab, -acetaminop 10-02 Oral, ED hen (NORCO, 21:55: 21:57 ONCE, Sat LORCET) 00 :00 08/02/18 5-325 mg at 2155, per tablet For 1 1 Tab dose
Fa ll Risk Medication . &nb sp;For pain.&nbsp ; Ped iatrics:&n bsp; Do not exceed 5 doses of acetaminop hen in 24 hours.
ondansetron 2017-09 Yes 4mg Q.50864302 Take 1 T ab ODT (ZOFRAN 10-02 [id number] by mouth ODT) 4 mg 00:00: 3D every 8 Oral 00 hours. Tablet, Rapid Dissolve oxyCODONE-a 2017-09- No 1{tbl} Q8H Take 1 Tab cetaminophe 10-02- by mouth n 00:00: 23:59 every 8 (PERCOCET) 00 :00 hours as 5-325 mg needed for Oral Tablet Pain for up to 3 days. penicillin 2017-09 Yes 500mg Q.25D Take 500 v potassium 1-05 mg by (VEETID) 00:00: mouth four 500 mg Oral 00 times a Tablet day. ondansetron 2017-09- No 4mg 4 mg, ODT 0-30 10-30 Oral, ED (ZOFRAN-ODT 01:35: 01:41 ONCE, Tue ) 00 :00 07/22/18 dispersible at 0135, tablet 4 mg For 1 dose
Or ally disintegra ting.&nbsp ; &nb sp; < br> acetaminoph 2017-09 2018- No 650mg 650 mg, en 0-30 10-30 Oral, ED (TYLENOL) 01:35: 01:41 ONCE, Tue tablet 650 00 :00 18 mg at 0135, For 1 dose
Pe diatrics:& nbsp;&nbsp ;Do not exceed 5 doses of acetaminop hen in 24 hours.
EROP 2017-09- No 4mg Q8H 4 mg, ondansetron 0-30 10-31 Oral, ODT (ZOFRAN 01:29: 01:28 EVERY 8 ODT) 4 mg 58 :58 HOURS dispersible NEEDED, tablet 4 mg Nausea, Starting 07/22/18 at 0129, For 1 day
DO NOT ADMINISTER . &nb sp;This medication is to be dispensed to the patient at discharge from the ED. & nbsp;The medication should be used as directed by the physician.
gabapentin 2017-09 Yes 900mg Q.70976724 Take 900 (NEURONTIN) 0-30 [id number] mg by 300 mg Oral 00:06: 3D mouth Capsule 01 three times a day. 3/300mg tablets TID busPIRone 2017-09 Yes 10mg Q.41156409 Take 10 mg (BUSPAR) 10 0-30 [id number] by mouth mg Oral 00:06: 3D three Tablet 01 times a day. ibuprofen 2017-09 Yes 800mg Q6H Take 800 (ADVIL,MOTR 0-30 mg by IN) 800 mg 00:06: mouth Oral Tablet 01 every 6 hours as needed for Pain. naproxen 2018- No 250mg Q8H Take 1 Tab (NAPROSYN) 7-31 10-30 by mouth 250 mg Oral 00:00: 00:00 every 8 Tablet 00 :00 hours as needed. Acetaminoph Yes 650mg Q6H Take 650 en (TYLENOL 7-06 mg by 8 HOUR) 650 00:00: mouth mg Oral 00 every 6 Tablet hours as Sustained needed for Release Pain. Problems Condition Condition Condition Status Onset Resolution Last Treatin g Comments Name Details Category Date Date Treatment Clinician Date Toothache Toothache Problem Resolved 2017-09 20:04: 00 Procedures Procedure Date / Time Performed Performing Clinician Ximenac e WET PREP (SALINE) 2018-09-21 21:36:00 David Arteaga CHLAMYDIA/GC AMPLIFIED PROBE 2018-09-21 21:36:00 Jack Arteaga iel SCREEN, URINE 2018-09-20 05:40:00 Bilal, Satti URINALYSIS, COMPLETE 2018-09-20 05:40:00 Bilal, Satti OFFICE/OUTPATIENT VISIT EST 2018-07-17 14:00:00 OFFICE/OUTPATIENT VISIT EST 2018-03-04 09:15:00 OFFICE/OUTPATIENT VISIT EST 2017-12-27 14:00:00 OFFICE/OUTPATIENT VISIT EST 2017-10-22 14:30:00 OFFICE/OUTPATIENT VISIT EST 2017-10-09 15:15:00 OFFICE/OUTPATIENT VISIT EST 2017-08-20 10:30:00 Results Test Description Test Time Test Comments Text Results Atomic Results Result Comments WET PREP (SALINE) 2018-09-21 17:20:20 Test Item Value Reference Range Comments Specimen (test code = 42437-0) VAGINAL SPECIMEN Information (test code = 55274-4) NONE Wet Preparation (test code = 680-9) CELLS RESEMBLING CLUE CELLS OBSERVEDNO TRICHOMONAS OR YEAST SEEN Report Status (test code = 016177) FINAL09/21/2018 SCREEN, [id number] 02:22:12 Test Item Value Reference Range Comments HCG, urine (test code = 2106-3) NEG URINALYSIS, [id number] 01:06:12 Test Item Value Reference Range Comments Appearance, urine (test code = 5767-9) SL.CLOUDY CLEAR^MYLES AR Color, urine (test code = 5778-6) YELLOW YEL^YELLOW Specific [place], urine (test code = 5811-5) 1.015 1.0 08-1.022 pH, urine (test code = 5803-2) 7.0 5.0-8.0 Protein, urine (test code = 5804-0) NEG NEG^NEG Glucose, urine (test code = 5792-7) NEG NEG^NEG Ketones, urine (test code = 5797-6) NEG NEG^NEG Hemoglobin, urine (test code = 5794-3) NEG NEG^NEG Urobilinogen, urine (test code = 46323-1) 1 0.2-1. 0 Bilirubin, urine (test code = 5770-3) NEG NEG^NEG Nitrites, urine (test code = 5802-4) NEG NEG^NEG Leukocyte Esterase, urine (test code = 5799-2) SMALL N EG^NEG RBC, urine (test code = 78004-4) 0-2 0- 2 /HPF WBC, urine (test code = 5821-4) 50-100 0- 2 /HPF Epithelial Cells, urine (test code = 5787-7) LARGE NON E^NONE /HPF Bacteria, urine (test code = 67332-5) FEW Lab Interpretation (test code = 20689-6) Abnormal SURESWAB(R) TRICHOMONAS VAGINALIS RNA, QL, [id number] 15:19:00NOT DETECTED CHLAMYDIA/N. GONORRHOEAE RNA, TMA, [id number] 15:19:00 Test Item Value Reference Range Comments NEISSERIA GONORRHOEAE RNA, TMA, UROGENITAL NOT DETECTED NOT D ETECTED (test code = 45648181) CHLAMYDIA TRACHOMATIS RNA, TMA, UROGENITAL NOT DETECTED NOT D ETECTED (test code = 18389306) Urine \S\2018-03-04 09:15:00 Test Item Value Reference Range Comments Urine (test code = URINEPREG) negative N/A Culture, [id number] 08:12:00 Test Item Value Reference Range Comments FINAL REPORT (test code = FR) NO GROWTH H. pylori Urea Breath Test, IR [id number] 16:17:00 Test Item Value Reference Range Comments H. pylori UBiT (test code = 281729) DETECTED Not Detected Hemoglobin A1c with [id number] 16:17:00 Test Item Value Reference Range Comments eAG (calc) (test code = 966407) 100 mg/dL Hemoglobin A1C (test code = 471914) 5.1 % <5.7 CBC with [id number] 16:17:00 Test Item Value Reference Range Comments Absolute Baso (test code = 43 cells/uL 0-200 377266) Absolute [place] (test code = 473 cells/uL 200-950 238837) WBC (test code = 726035) 4.3 K/uL 3.8-10.8 Smear Review (test code = Criteria for review not met 648206) Hemoglobin (test code = 102569) 14.4 g/dL 11.7-15.5 Platelet Count (test code = 184 K/uL 140-400 258814) MCHC (test code = 543478) 33.0 g/dL 32.0-36.0 [place] % (test code = 863347) 11 % RDW (test code = 963842) 13.0 % 11.0-15.0 Absolute Lymph (test code = 1849 cells/uL 850-3900 799455) MPV (test code = 004906) 11.4 fL 7.5-12.5 Absolute Neut (test code = 1806 cells/uL 0977-4725 483181) MCH (test code = 620665) 30.3 pg 27.0-33.0 Baso % (test code = 498402) 1 % Lymph % (test code = 279689) 43 % Neutrophils % (test code = 42 % 142080) MCV (test code = 974488) 91.8 fL 80.0-100.0 Eos % (test code = 044305) 3 % Hematocrit (test code = 829555) 43.6 % 35.0-45.0 Absolute Eos (test code = 129 cells/uL 15-500 551899) RBC (test code = 731685) 4.75 MIL/uL 3.80-5.10 Wet Prep by Molecular [id number] 16:17:00 Test Item Value Reference Range Comments Adela species (test code = 648138) NEG Negative Trichomonas vaginalis (test code = 615004) NEG Negat huber Gardnerella vaginalis (test code = 720168) NEG Negat huber CMP with Estimated [id number] 16:17:00 Test Item Value Reference Range Comments Total Protein (test code = 263542) 7.4 g/dL 6.1-8.1 Est GFR, (test code = 811986) >89 mL/min > =60 Est GFR, NonAfrican Croatian (test code = 937865) 88 mL/min >=60 BUN (test code = 214798) 14 mg/dL 7-25 Calcium (test code = 722071) 9.5 mg/dL 8.6-10.2 Creatinine (test code = 686253) 0.89 mg/dL 0.50-1.10 ALT/SGPT (test code = 016763) 9 U/L 6-29 Potassium (test code = 154839) 4.2 mmol/L 3.5-5.3 Chloride (test code = 676234) 107 mmol/L 98-110 CO2 (test code = 164441) 28 mmol/L 20-31 Albumin (test code = 822048) 4.5 g/dL 3.6-5.1 Bilirubin, Total (test code = 254576) 0.4 mg/dL 0.2-1.2 Glucose (test code = 468099) 84 mg/dL 65-99 Sodium (test code = 535086) 142 mmol/L 135-146 AST/SGOT (test code = 839769) 12 U/L 10-30 Alkaline Phosphatase (test code = 121820) 57 U/L 33-115 RPR w/ Rflx to Titer and [id number] 16:17:00 Test Item Value Reference Range Comments RPR (test code = 745519) NON REAC NON REAC HIV 1/2 Ag/Ab, 4th Gen, w/ [id number] 16:17:00 Test Item Value Reference Range Comments HIV Ag/Ab, 4th Generation (test code = 394366) NONREACTIVE N ONREACTIVE Pap, TP Imaging rflx HPV w/ [id number] 16:17:00 Test Item Value Reference Range Comments Neisseria gonorrhoeae RNA (test code = NOT DETECTED 086132) Source: (test code = 492848) Cervical/endocervical LMP: (test code = 053649) 20170724 Chlamydia trachomatis RNA (test code = NOT DETECTED 854154) Number of Slides/Vials: (test code = 1 Vial Submitted 587436) Urine \S\2017-08-20 10:30:00 Test Item Value Reference Range Comments Urine (test code = URINEPREG) negative N/A Culture, [id number] 00:01:00 Test Item Value Reference Range Comments COLONY COUNT: (test code = CCT) >=100,000 COLONIES/ML PRELIM REPORT (test code = ME) ESCHERICHIA COLI Culture, [id number] 00:01:00 Test Item Value Reference Range Comments FINAL REPORT (test code = FR) ESCHERICHIA COLI COLONY COUNT: (test code = CCT) >=100,000 COLONIES/ML Sensitivity for: ESCHERICHIA [id number] 00:01:00 Test Item Value Reference Range Comments CIPROFLOXACIN (test code = CP) S, 0.5 TOBRAMYCIN (test code = TO) S, <=1 LEVOFLOXACIN (test code = LVX) S, 1 IMIPENEM (test code = IMP) S, <=0.25 GENTAMICIN (test code = GM) S, <=1 NITROFURANTOIN (test code = NFN) S, <=16 PIPERACILLIN/TAZO (test code = PTZ) S, <=4 CEFTAZIDIME (test code = CAZ) S, <=1 AMPICILLIN/SUL (test code = AMS) S, <=2 CEFAZOLIN (test code = CFZ) NR, <=4 AMPICILLIN (test code = AM) S, <=2 TRIMETH/SULFA (test code = TS) S, <=20 CEFTRIAXONE (test code = CAX) S, <=1 AMOX/CLAVULANIC (test code = AMC) S, <=2 CEFEPIME (test code = CPE) S, <=1 Assessments Condition Name Status Diagnosis Date Treating Clinici an Cough Active Oth symptoms and signs involving the circ Active and resp systems Encntr screen for infections w sexl mode of Active transmiss Encounter for screening for human Active immunodeficiency virus Anxiety disorder, unspecified Active Hemiplegic migraine, not intractable, 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 Frequency of micturition Active Body mass index (BMI) 23.0-23.9, adult Active Acute sinusitis, unspecified Active Other abnormalities of breathing Active Nicotine dependence, cigarettes, Active uncomplicated Body mass index (BMI) 23.0-23.9, adult Active 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) w/o Active abn findings Encounter for screening for malignant Active neoplasm of cervix Encntr screen for infections w sexl mode of Active transmiss Pelvic and perineal pain Active Hemiplegic migraine, not intractable, 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 Headache Active Other general symptoms and signs Active Body mass index (BMI) 22.0-22.9, adult Active Encounter for oth general cnsl and advice on Active contraception Encounter for test, result Active negative Pain in right wrist Active Encounter for initial prescription of Active injectable contracep Encounters Start End Encounter Admission Attending Care Care Encounter Date/Time Date/Time Type Type Clinicians Facility Department ID 2018-09-21 2018-09-21 Emergency [facility] [id number] 16:25:33 17:31:00 2018-09-20 2018-09-20 [facility] [id number] 00:43:45 03:09:00 2018-08-02 2018-08-02 Emergency X WHITE, [facility] [id number] 4 21:40:34 22:01:00 BASHIR 2018-08-02 2018-08-02 Emergency [facility] [id number] 21:40:34 22:01:00 2018-08-02 2018-08-02 Departed [facility] [place] [id number] 19:36:00 20:17:[address] 2018-07-22 2018-07-22 Emergency X EMERGENCY, [facility] [id number] 01:09:00 01:50:00 ATTENDING 2018-07-22 2018-07-22 Emergency [facility] [id number] 01:09:00 01:50:00 2018-07-17 2018-07-17 Outpatient Mahamed [facility] A4 [id number] 14:00:00 14:00:00 Simin Children [id number] s [id number] and [id number] [facility], [place] 2018-03-04 2018-03-04 Outpatient Mahamed [facility] E4 [id number] 09:15:00 09:15:00 Simin Children [id number] s [id number] and [id number] [facility], [place] 2017-12-27 2017-12-27 Outpatient Mahamed [facility] B3 [id number] 14:00:00 14:00:00 Simin Children [id number] s [id number] and [id number] [facility], [place] 2017-10-22 2017-10-22 Outpatient Mahamed [facility] D3 [id number] 14:30:00 14:30:00 Simin Children [id number] s [id number] and [id number] [facility], [place] 2017-10-09 2017-10-09 Outpatient Mahamed [facility] [id number] 15:15:00 15:15:00 Simin Children [id number] s [id number] and [id number] [facility], [place] 2017-08-20 2017-08-20 Outpatient Mahamed [facility] 25 [id number] 10:30:00 10:30:00 Simin Children [id number] s [id number] and [id number] [facility], [place] Payers Payer Name Policy Type Policy Number Effective Date Expiration D ate MEDICAID MEDICAID xxxxxxxxxx xxxxxxxxxx Medicaid [id number] MEDICAID [id number] Medicaid [place] [id number] 2018 00:00:00 [facility] 05-03-10 00:00:00 Access Plan of Treatment Planned Activity Planned Date Details Comments Future Scheduled Test [code = ] Future Scheduled Test [code = ] Instructions Attachments The following attach ments cannot be sent through Care Ever ywhere. Bacterial Vaginosis (BV) ([facility]) Instructions Attachments The following attach ments cannot be sent through Care Ever ywhere. Bladder Infection, Female (Adult ) ([place]) Instructions Instructions Samantha Vergara andPRATIK - 08/02/2018 You need to call to schedule an appointment as soon as toyin ceballos.Take the pain medication as directed. You may alternate using 500-650mg tyleno l and 400-800mg ibuprofen every 4-6 ho urs for pain and inflammation as needed. Do not exceed 3200mg tylenol and 3200mg ibuprofen daily. Instructions The following attachments cannot be sent through Care Everywhere. Viral S yndrome (Adult) ([place]ISIAN) in this encoun ter Social History Social Habit Start Date Stop Date Comments Cigarettes smoked current (pack per 2018-09-21 00:00:00 00:00:00 day) - Reported Alcohol Comment 2018-07-22 00:00:00 2018-07-22 00:00:00 Smoking Status Start Date Stop Date History of tobacco use Current every day smoker 2018-09-21 00:00:00 2018-09-21 00:0 0:00 Vital Signs Vital Name Observation Time Observation Value Comments Diastolic blood pressure 2018-09-21 16:23:00 65 mm[Hg] Heart rate 2018-09-21 16:23:00 98 /min Body temperature 2018-09-21 16:23:00 36.56 Daisy Respiratory rate 2018-09-21 16:23:00 18 /min Body height 2018-09-21 16:23:00 162.6 cm Body weight Measured 2018-09-21 16:23:00 63.504 kg BMI 2018-09-21 16:23:00 24.03 kg/m2 Oxygen saturation in Arterial blood by 2018-09-21 16:23:00 98 % Pulse oximetry Systolic blood pressure 2018-09-21 16:23:00 108 mm[Hg] Systolic blood pressure 2018-09-20 02:28:00 115 mm[Hg] Diastolic blood pressure 2018-09-20 02:28:00 62 mm[Hg] Heart rate 2018-09-20 02:28:00 66 /min Body temperature 2018-09-20 02:28:00 36.44 Daisy Respiratory rate 2018-09-20 02:28:00 16 /min Oxygen saturation in Arterial blood by 2018-09-20 02:28:00 100 % Pulse oximetry Systolic blood pressure 2018-08-02 21:42:00 112 mm[Hg] Diastolic blood pressure 2018-08-02 21:42:00 57 mm[Hg] Heart rate 2018-08-02 21:42:00 103 /min Body temperature 2018-08-02 21:42:00 36.72 Daisy Respiratory rate 2018-08-02 21:42:00 18 /min Oxygen saturation in Arterial blood by 2018-08-02 21:42:00 100 % Pulse oximetry WEIGHT 2018-08-02 19:36:00 61.886970 kg HEIGHT 2018-08-02 19:36:00 162.794052 cm SYSTOLIC BLOOD PRESSURE 2018-07-22 01:43:00 123 mm[Hg] DIASTOLIC BLOOD PRESSURE 2018-07-22 01:43:00 87 mm[Hg] HEART RATE 2018-07-22 01:43:00 77 /min BODY TEMPERATURE 2018-07-22 01:43:00 36.44 Daisy RESPIRATORY RATE 2018-07-22 01:43:00 18 /min OXYGEN SATURATION 2018-07-22 01:43:00 98 % WEIGHT 2018-07-22 00:07:00 60.328 kg BODY MASS INDEX 2018-07-22 00:07:00 22.83 kg/m2 Hospital Discharge Instructions Attachments The following attachments cannot be sent through Care Everywhere. Bacterial Vaginosis (BV) ([place]) in this encounterAttachments The following attachments cannot be sent through Care Everywhere. Bladder Infection, Female (Adult) ([place]IAN) in this encounterInstructions Samantha Vergara PA-C - 08/02/2018 You need to call to schedule an appointment as soon as possible. Take the pain medication as directed. You may alternate using 500-650mg tylenol and 400-800mg ibuprofen every 4-6 hours for pain and inflammation as needed. Do not exceed 3200mg tylenol and 3200mg ibuprofen daily. in this encounterNo hospital discharge instruction information available.The following attachments cannot be sent through Care Everywhere. Viral Syndrome (Adult) (W[place]ISIAN) in this encounter
== END 2020-10-16 12:57 | disposition home or self-care (01) ==
LOC: ER 12:43
DX: O26.92 Pregnancy related conditions, unspecified, second trimester (principal); B00.2 Herpesviral gingivostomatitis and pharyngotonsillitis; Z3A.23 23 weeks gestation of pregnancy
CPT/HCPCS: 99283